=== PATIENT | male | born 1985 | race Caucasian/White ===

== ENCOUNTER 2018-07-06 19:57 | Emergency (ER) | payer OTHER ==
[2018-07-06] MEDS: KETOROLAC 30 MG INJ IM (21:35)
== END 2018-07-06 23:05 | disposition home or self-care (01) ==
LOC: FTE 19:57
DX: S39.92XA Unspecified injury of lower back, initial encounter (principal); J45.909 Unspecified asthma, uncomplicated; T14.8XXA Other injury of unspecified body region, initial encounter; M62.838 Other muscle spasm; F17.210 Nicotine dependence, cigarettes, uncomplicated; V43.52XA Car driver injured in collision with other type car in traffic accident, initial encounter
CPT/HCPCS: 71046; 72040; 72100; 96372; 99284-25